=== PATIENT | female | born 1940 | race Caucasian/White ===

== ENCOUNTER 2020-04-19 10:23 | Emergency (ER) | payer MEDICARE, BC ==
--- NOTE | 2020-04-19 10:35 | ED Physician Documentation ---
PD HPI DYSPNEA - Stated complaint Stated Complaint: CHEST TUBE - History obtained from History obtained from: Patient, Family - History of Present Illness Timing - onset: Today (Has had chest tube in for 2 weeks for drainage of empyema. Has had no drainage out lately. Is due to see Thoracic surgeon again in 8 days for tube out if doing okay. Today at dressing change, says the tube just slipped out (suture thread seems to have broken). Pt feeling okay otherwise.) Timing - onset during: Light activity Timing - details: Abrupt onset Inciting event(s): No: URI Associated symptoms: No: Fever, Cough Recently seen: Surgery (had esophageal surgery month ago and subsequently had dyspnea/chest pain and found to have leak from esophagus, with fluid/food accumulation right pleural space. Had repair surgery on esophagus and chest tube drainage 2 weeks ago.) Review of Systems Constitutional: denies: Fever, Chills Nose: denies: Rhinorrhea / runny nose, Congestion Throat: denies: Sore throat Cardiac: denies: Chest pain / pressure Respiratory: denies: Cough PD PAST MEDICAL HISTORY - Past Medical History Cardiovascular: None Respiratory: None (no prior lung disease. Just the recent empyema.) - Present Medications Home Medications: Ambulatory Orders Medication Instructions Recorded Confirmed Mupirocin 1 applic TP TID #15 g 04/19/20 - Allergies Allergies/Adverse Reactions: Allergies Allergy/AdvReac Type Severity Reaction Status Date / Time levofloxacin [From Levaquin] Allergy Unknown Verified 04/19/20 10:54 Penicillins Allergy Rash Verified 04/19/20 10:54 soap Allergy Rash Verified 04/19/20 10:54 PD ED PE NORMAL - Vitals Vital signs reviewed: Yes - General General: Alert and oriented X 3, No acute distress, Well developed/nourished - Cardiac Cardiac: RRR, No murmur, Other (the chest tube brought with them has suture wrap still on and does not appear broken. I think the thread pulled through the skin that was irritated. ) - Respiratory Respiratory: Clear bilaterally, Other (right lateral chest wall with open wound without drainage. The edges are red and has mild swelling. No redness extended from very edge. No purulence. ) - Abdomen Abdomen: Soft, Non tender Results - Vitals Vitals: Vital Signs - 24 hr 04/19/20 04/19/20 10:36 11:28 Temperature 36.4 C L 37.1 C Heart Rate 90 79 Respiratory 18 20 Rate Blood Pressure 132/78 H 129/63 O2 Saturation 100 95 Oxygen O2 Source Room air - Rads (name of study) chest xray Radiology: Prelim report reviewed (no PTX, and only minimal scarring right lower angle. ), See rad report PD MEDICAL DECISION MAKING - ED course Complexity details: considered differential, d/w patient, d/w supervisor home energy consultant (talked with [facility] surgery service provider artificial stone applicator, who said okay to leave tube out and will notify Dr. Lee about it later today (he is not in office right now). ) Departure - Departure Disposition: 01 Home, Self Care Clinical Impression: Complication of chest tube Qualifiers: Encounter type: initial encounter Qualified Code(s): T85.9XXA - Unspecified complication of internal prosthetic device, implant and graft, initial encounter Condition: Stable Follow-Up: Cosme Lee MD [Physician No Access] - Prescriptions: Mupirocin 1 applic TP TID #15 g Comments: I talked with the thoracic surgery artificial stone applicator and they said it is okay for the chest tube to just remain out. Give Dr. Golden office a call in the next couple of days to update him. Otherwise use some antibiotic ointment once or twice daily to the area and dressing changes. Recheck if signs of infection or problems develop. Discharge Date/Time: 04/19/20 11:59
[2020-04-19] MEDS ORDERED: MUPIROCIN 2% OINT 1 GM TOP STA (10:46)
--- NOTE | 2020-04-19 11:18 | XRAY Report ---
PROCEDURE: Chest 2 View X-Ray INDICATIONS: chest tube fell out TECHNIQUE: 2 view(s) of the chest. COMPARISON: None. FINDINGS: Surgical changes and devices: Cardiac pacemaker is unremarkable. A probable esophageal stent is prese nt projected over the left upper quadrant. Lungs and pleura: The right lung is clear. There is trace right and moderate left basilar scarring an d probable small effusions. No pneumothorax. Mediastinum: Mediastinal contours are normal. Heart size is normal. Bones and chest wall: No suspicious bony abnormalities. Soft tissues appear unremarkable. IMPRESSION: Scarring at the bilateral lung bases with probable small effusions. No pneumothorax. Reviewed by: Ghada Gordon MD on 04/19/2020 11:17 AM PDT Approved by: Ghada Gordon MD on 04/19/2020 11:17 AM PDT Station ID: [id number]
[2020-04-19 11:28] VITALS: BP 129/63
== END 2020-04-19 11:59 | disposition home or self-care (01) ==
LOC: ED 10:23
DX: T85.9XXA Unspecified complication of internal prosthetic device, implant and graft, initial encounter (principal)
CPT/HCPCS: 71046; 99283; A9270

== ENCOUNTER 2020-06-17 11:21 | Outpatient (CLI) | payer MEDICARE, BC ==
--- NOTE | 2020-06-17 12:26 | XRAY Report ---
PROCEDURE: Chest 2 View X-Ray INDICATIONS: ANASTOMOTIC LEAK FROM ESOPHAGUS TECHNIQUE: 2 view(s) of the chest. COMPARISON: None. FINDINGS: Surgical changes and devices: Left-sided pacer. Stent device projects over the left lower chest and u pper abdomen. Lungs and pleura: No pleural effusions or pneumothorax. No change in bibasilar scarring. Lungs are otherwise clear. Mediastinum: Mediastinal contours are normal. Heart size is normal. Bones and chest wall: No suspicious bony abnormalities. Soft tissues appear unremarkable. IMPRESSION: No acute process. Reviewed by: Yohana Worley MD on 06/17/2020 12:25 PM PST Approved by: Yohana Worley MD on 06/17/2020 12:25 PM PST Station ID: [id number]
== END 2020-06-17 11:22 | disposition home or self-care (01) ==
LOC: DI 11:21
PROVIDERS: ATTEND Surgery
DX: K91.89 Other postprocedural complications and disorders of digestive system (principal)

== ENCOUNTER 2020-08-10 15:00 | Outpatient (CLI) | payer MEDICARE, BC | END 2020-08-10 23:59 | disposition home or self-care (01) | LOC: LAB.R 15:00 | PROVIDERS: ATTEND Family Medicine | DX: E03.9 Hypothyroidism, unspecified (principal) | CPT/HCPCS: 84443 ==

== ENCOUNTER 2020-08-15 06:29 | Emergency (ER) | payer MEDICARE, BC ==
--- NOTE | 2020-08-15 08:42 | ED Physician Documentation ---
History of Present Illness - Stated complaint Stated Complaint: FEEDING TUBE FELL OUT - Chief complaint Chief Complaint: General - History obtained from History obtained from: Patient - History of Present Illness Timing: Enter time (329), Today - Additonal information Additional information: 80-year-old female with a history of a hiatal hernia repair done last summer has had complications including a perforation to the esophagus resulting in empyema placement of the chest tube the chest tube eventually migrated out and we saw her here for that and she has recovered. The patient has been using a feeding tube and this remained in place until early this morning when she fussed with it about 3:00 in the morning she noted at 5:00 in the morning the tube was completely out. She states that she has been advancing her diet and was scheduled to have this feeding tube investigated and removed in either this week or next week and she has been able to advance her diet to solid foods she started to get solid stool and she has been decreasing the amount of fluids she has been putting into the feeding tube and today would have been the last time she used the feeding tube. She had a plan to keep the feeding tube in place and get an upper GI series done, have follow-up with her surgeon Dr. Golden at [facility] and if she was able to maintain her weight have the tube removed. She is not otherwise ill and is feeling improved in general with the exception of some peripheral neuropathy which is started out in February of last year. Review of Systems Constitutional: denies: Fever Eyes: denies: Decreased vision Ears: denies: Ear pain Nose: denies: Rhinorrhea / runny nose, Congestion Throat: denies: Sore throat Cardiac: denies: Chest pain / pressure, Palpitations Respiratory: denies: Dyspnea, Cough GI: reports: Diarrhea. denies: Abdominal Pain, Nausea, Vomiting : denies: Dysuria, Frequency Skin: denies: Rash Musculoskeletal: reports: Extremity pain. denies: Neck pain, Back pain Neurologic: reports: Numbness (to the feet). denies: Generalized weakness, Focal weakness PD PAST MEDICAL HISTORY - Past Medical History Past Medical History: Yes Cardiovascular: None Respiratory: None Neuro: Tremors Endocrine/Autoimmune: None GI: GERD, Hiatal hernia, Other ARTS THERAPIST: None : Incontinence HEENT: Chronic vision loss, Chronic hearing loss Psych: None Musculoskeletal: None Derm: None - Past Surgical History Past Surgical History: Yes General: Hiatal hernia repair, Other Ortho: Carpal Tunnel surgery /ARTS THERAPIST: Tubal ligation, Hysterectomy Cardiovascular: Pacemaker HEENT: Tonsil/Adenoidectomy - Present Medications Home Medications: Ambulatory Orders Medication Instructions Recorded Confirmed Mupirocin 1 applic TP TID #15 g 04/19/20 - Allergies Allergies/Adverse Reactions: Allergies Allergy/AdvReac Type Severity Reaction Status Date / Time levofloxacin [From Levaquin] Allergy Unknown Verified 08/15/20 06:59 Penicillins Allergy Rash Verified 08/15/20 06:59 soap Allergy Rash Verified 08/15/20 06:59 - Social History Does the pt smoke?: No Smoking Status: Never smoker Does the pt drink ETOH?: Yes Does the pt have substance abuse?: No - Immunizations Immunizations are current?: Yes - POLST Patient has POLST: No PD ED PE NORMAL - Vitals Vital signs reviewed: Yes (hypertensive) - General General: Alert and oriented X 3, No acute distress, Well developed/nourished, Other (Pleasant 100 pound female) - HEENT HEENT: Atraumatic, PERRL, EOMI - Respiratory Respiratory: No respiratory distress - Abdomen Abdomen: Normal bowel sounds, Soft, Non tender, Other (There is a jejunal feeding tube that is outside of the patient's body and attached to her abdominal wall with a single suture. There is some mucus surrounding the stoma and the stoma has no significant surrounding inflammation. There is inflammation specifically at the suture kim.) - Back Back: No CVA TTP, No spinal TTP - Derm Derm: Normal color, Warm and dry, No rash - Extremities Extremities: No deformity, No edema - Neuro Neuro: Alert and oriented X 3, manager field sales 2-12 intact, No motor deficit, No sensory deficit, Normal speech Eye Opening: Spontaneous Motor: Obeys Commands Verbal: Oriented GCS Score: 15 - Psych Psych: Normal mood, Normal affect Results - Vitals Vitals: Vital Signs - 24 hr 08/15/20 06:57 Temperature 36.6 C Heart Rate 87 Respiratory 17 Rate Blood Pressure 171/91 H O2 Saturation 99 Oxygen O2 Source Room air PD MEDICAL DECISION MAKING - ED course Complexity details: reviewed old records, re-evaluated patient, considered differential, d/w patient ED course: 80-year-old female with a dislodged feeding tube that has been bothering her especially lately. After the suture was cut and the tube no longer hanging on the abdominal wall the patient felt improved. The stoma was cleaned and dressed. We did attempt to contact the patient's surgeon as I thought it unnecessary to replace the tube. We were not able to contact Dr. Lee. I did consult our surgeon here Dr. Wilson and he recommended leaving the tube out as well. The patient was happy to comply with this. We were not able to perform the upper GI series this weekend as we do not have a radiologist on site. The patient is encouraged to follow up here if there are any issues with pain, vomiting, fever or new unusual symptoms. Departure - Departure Disposition: 01 Home, Self Care Clinical Impression: Encounter for care related to feeding tube Condition: Stable Follow-Up: JUSTINE QUARLES MD [Primary Care Provider] - Cosme Lee MD [Physician No Access] - Comments: Today it looks like you are done with your feeding tube and the recommendation is to care for the area where the stoma is with cleaning and a dressing. Continue your feedings at a moderate rate and do not overeat. If you have difficulty with drainage from the site, pain at the site, fever or other complications return here or follow-up with Dr. Lee.
[2020-08-15 09:14] VITALS: BP 132/74
== END 2020-08-15 09:13 | disposition home or self-care (01) ==
LOC: ED 06:29
DX: Z43.4 Encounter for attention to other artificial openings of digestive tract (principal); G62.9 Polyneuropathy, unspecified
CPT/HCPCS: 99281; 99282